=== PATIENT | male | born 1995 | race African-American/Black ===

== ENCOUNTER 2017-12-21 21:29 | Emergency (ER) | payer OTHER ==
--- NOTE | 2017-12-21 21:57 | ED ---
Shortness of Breath - HPI Summary HPI Summary: This patient is a 22 year old M presenting to [facility] with a chief complaint of intermittent SOB/dizziness since earlier today at 14:00. Patient reports palpitations, tachypnea, high BP, and tachycardia. Patient denies fever, coughing, and chills. Patient has a history of HTN but reports that this is the highest BP he has had. Patient is not taking any medications. He last had an EKG when he was 19, for which he reports that he was diagnosed with a hole in my heart but was told it was not something he had to worry about. - History of Current Complaint Chief Complaint: EDDysrhythmPalp Time Seen by Provider: 12/21/17 21:43 Hx Obtained From: Patient Onset/Duration: Sudden Onset Timing: Intermittent Episodes Lasting: - Hours Associated Signs & Symptoms: Cough (Productive) - Denies, Cough (Nonproductive) - Denies, Cough (Bloody Sputum) - Denies, Fever - Denies, Chills - Denies - Allergy/Home Medications Allergies/Adverse Reactions: Allergies Allergy/AdvReac Type Severity Reaction Status Date / Time No Known Allergies Allergy Verified 12/21/17 21:34 Home Medications: Home Medications NK [No Home Medications Reported] 12/21/17 [History Confirmed 12/21/17] PMH/Surg Hx/FS Hx/Imm Hx Cardiovascular History: Reports: Hx Hypertension Respiratory History: Reports: Hx Asthma Infectious Disease History: No Infectious Disease History: Denies: Traveled Outside the [place] in Last 30 Days - Family History Known Family History: Positive: Hypertension Negative: Cardiac Disease, Diabetes - Social History Occupation: Student Lives: Dormitory/Roommates Alcohol Use: None Substance Use Type: Reports: None Smoking Status (MU): Never Smoked Tobacco Review of Systems Negative: Fever, Chills Positive: Other - High BP, tachycardia Positive: Shortness Of Breath - Intermittent along with his dizziness, Other - Tachypnea. Negative: Cough Neurological: Other - Intermittent along with his SOB All Other Systems Reviewed And Are Negative: Yes Physical Exam - Summary Physical Exam Summary: VITAL SIGNS: Reviewed. GENERAL: Patient is a well-developed and nourished MALE who is lying comfortable in the stretcher. Patient is not in any acute respiratory distress. HEAD AND FACE: No signs of trauma. No ecchymosis, hematomas or skull depressions. No sinus tenderness. EYES: PERRLA, EOMI x 2, No injected conjunctiva, no nystagmus. EARS: Hearing grossly intact. Ear canals and tympanic membranes are within normal limits. MOUTH: Oropharynx within normal limits. NECK: Supple, trachea is midline, no adenopathy, no JVD, no carotid bruit, no c- spine tenderness, neck with full ROM. CHEST: Symmetric, no tenderness at palpation LUNGS: Clear to auscultation bilaterally. No wheezing or crackles. CVS: 2/6 systolic measure over L sternal border. ABDOMEN: Soft, non-tender. No signs of distention. No rebound no guarding, and no masses palpated. Bowel sounds are normal. EXTREMITIES: FROM in all major joints, no edema, no cyanosis or clubbing. NEURO: Alert and oriented x 3. No acute neurological deficits. Speech is normal and follows commands. SKIN: Dry and warm Triage Information Reviewed: Yes Vital Signs On Initial Exam: Initial Vitals Temp Pulse Resp BP Pulse Ox 99.0 F 114 20 157/84 97 12/21/17 21:32 12/21/17 21:32 12/21/17 21:32 12/21/17 21:32 12/21/17 21:32 Vital Signs Reviewed: Yes Diagnostics - Vital Signs Vital Signs Temp Pulse Resp BP Pulse Ox 12/21/17 21:48 117 18 152/92 12/21/17 21:32 99.0 F 114 20 157/84 97 - Laboratory Result Diagrams: 12/21/17 22:19 12/21/17 22:19 Lab Statement: Any lab studies that have been ordered have been reviewed, and results considered in the medical decision making process. - Radiology Chest X-Ray Radiology Interpretation Completed By: ED Physician - Read 23:30. No acute processes. Pending official report. - EKG 22:25 Cardiac Rate: Tachycardia - 103 bpm EKG Rhythm: Sinus Rhythm EKG Interpretation: Normal axis. Normal interval. J point elevation. Course/Dx - Course Assessment/Plan: This patient is a 22 year old M presenting to [facility] with a chief complaint of intermittent SOB/dizziness since earlier today at 14:00. High BP was noted, but patient refused BP medication. Chest X-Ray showed no acute processes. EKG showed tachychardia 103 BPM, sinus rhythm, normal axis, normal interval, and J point elevation. The diagnoses are rhabdomyolsis and anxiety. - Diagnoses Provider Diagnoses: Rhabdomyolysis, Anxiety Discharge - Sign-Out/Discharge Documenting (check all that apply): Patient Departure - D/C - Discharge Plan Condition: Stable Disposition: HOME Patient Education Materials: Rhabdomyolysis (ED), Anxiety (ED) Referrals: No Primary Care Phys,NOPCP [Primary Care Provider] - 2 Days (Follow up with [facility] in 2 days.) Additional Instructions: FOLLOW UP WITH YOUR PRIMARY CARE PROVIDER WITHIN ONE WEEK FOR HIGH BLOOD PRESSURE NOTED TODAY. RETURN TO THE EMERGENCY DEPARTMENT FOR CHANGING OR WORSENING SYMPTOMS. FOLLOW UP WITH PCP IN 1-2 DAYS. - Attestation Statements Document Initiated by Scribe: Yes Documenting Scribe: Khari Cameron Provider For Whom Scribe is Documenting (Include Credential): Alem Sprague MD Scribe Attestation: Khari Valles, scribed for Alem Sprague MD on 12/22/17 at 0019.
[2017-12-21] MEDS ORDERED: Acetaminophen TAB* 325 MG PO ONE (22:11)
[2017-12-21] MEDS ORDERED: Ketorolac INJ* 30 MG/ML 1 ML VIAL IV PUSH ONE (22:11)
[2017-12-21 22:29] LABS: ABS Basophils 0 10^3/ul (0-0.2); ABS Eosinophils 0.1 10^3/ul (0-0.6); ABS Lymphocytes 1.9 10^3/ul (1.0-4.8); ABS Monocytes 0.6 10^3/ul (0-0.8); ABS Neutrophils 8.1 10^3/ul (1.5-7.7); ABS Nucleated RBC 0 10^3/ul; Eosinophil % 0.5 % (0-6); Hematocrit 43 % (42-52); Hemoglobin 14.2 g/dl (14.0-18.0); Mean Corpuscular HGB Conc 33 g/dl (31-36); Mean Corpuscular Hemoglobin 28 pg (27-31); Mean Corpuscular Volume 87 fL (80-94); Mean Platelet Volume 8.6 um3 (7.4-10.4); Nucleated Red Blood Cells % 0.1; Platelet Count 219 10^3/ul (150-450); Red Cell Distribution Width 14 % (10.5-15); White Blood Count 10.7 10^3/ul (3.5-10.8)
[2017-12-21 22:45] LABS: EGFR Non-African American 57.9 (>60)
[2017-12-21] MEDS ORDERED: NS 0.9% 1000 ML* 1,000 ML IV ONE (23:11)
[2017-12-21] MEDS ORDERED: hydrALAZINE IV* 20 MG/ML VIAL IV SLOW PU ONE (23:11)
[2017-12-22 00:30] VITALS: BP 135/90
--- NOTE | 2017-12-22 08:03 | RAD ---
INDICATION: Shortness of breath. COMPARISON: None. TECHNIQUE: Single AP portable view of the chest was obtained. FINDINGS: Image quality is compromised due to the relative inferiority of a portable chest x-ray. The heart and mediastinum exhibit normal size and contour. The lungs are grossly clear. There is no evidence of a large pleural effusion. Visualized bones are normal for the patient's age. IMPRESSION: No radiographic evidence for acute cardiopulmonary abnormality on this portable chest x-ray. R0
== END 2017-12-22 00:28 | disposition home or self-care (01) ==
LOC: ED 21:29
DX: M62.82 Rhabdomyolysis (principal); F41.9 Anxiety disorder, unspecified; R00.0 Tachycardia, unspecified
CPT/HCPCS: 36415; 71045; 80053; 80307; 82550; 83735; 84484; 85025; 85379; 86140; 93005; 96374; 99283; A9270-GY; J0360; J1885